=== PATIENT | female | born 1990 | race Two or more races ===

== ENCOUNTER 2021-02-10 14:30 | Inpatient (IN) | payer OTHER ==
[~2021-02-10] VITALS: Ht 167.6 cm; Wt 77.1 kg
[2021-02-26] MEDS ORDERED: PRENATAL CAPLE1 EAC1 PO (14:05)
== END 2021-02-28 13:54 | disposition home or self-care (01) | DRG 807 ==
LOC: OB/GYN 02-26 13:46 → LDR 02-26 13:46 → OB/GYN 02-26 18:00 → LDR 02-28 14:30
PROVIDERS: ADMIT Specialist; ATTEND Specialist
PROC: 10E0XZZ Delivery of Products of Conception, External Approach (ICD-10-PCS; principal; 2021-02-26)
PROC: 0W8NXZZ Division of Female Perineum, External Approach (ICD-10-PCS; 2021-02-26)
PROC: 4A1HXFZ Monitoring of Products of Conception, Cardiac Rhythm, External Approach (ICD-10-PCS; 2021-02-26)
DX: O80 Encounter for full-term uncomplicated delivery (principal); Z37.0 Single live birth; Z3A.39 39 weeks gestation of pregnancy